=== PATIENT | male | born 1970 | race African-American/Black ===

== ENCOUNTER 2016-12-01 03:56 | Emergency (ER) | payer OTHER ==
--- NOTE | ~2016-12-01 | CR72 ---
[facility] A Service of [facility] & [facility] RADIOLOGY TEXT RESULTS PATIENT: NAHEED CONNER LOCATION: [facility] : 72 UNIT #: [id number] AGE: [address]: HANSEL MORE APRN SEX: M ORDER DR: [id number] [facility] [address], [place] [address] [id number] MR#: [id number] Acc #: [id number] NAME: NAHEED CONNER : 1970 SEX: M STUDY DATE/TIME: 12/01/2016 4:44 UNIT: [facility] ROOM: STUDY DESCRIPTION: CR Chest Single View Portable Attending Physician: Hansel More Aprn Ordering Physician: Hansel More Aprn Primary Care Physician: Primary Care Physician No MEDICAL IMAGING REPORT This report is preliminary unless electronic signature is present EXAM Portable chest INDICATIONS Wheezing and shortness of air today. PROCEDURE Frontal view chest. COMPARISON None FINDINGS Heart size normal. Lungs are clear. No pleural fluid. No pneumothorax. IMPRESSION No active process. Dictated by... Nithin Hoffman M.D. THIS IS AN ELECTRONICALLY VERIFIED REPORT Nithin Hoffman M.D. at 12/01/2016 10:15 PM Anay TD: 12/01/2016 06:44 JOB #: [id number] MEDICAL IMAGING REPORT Page 1 of 1 COPY
[2016-12-01 04:29] LABS: INFLUENZA A NEG (NEG); INFLUENZA B NEG (NEG)
== END 2016-12-01 05:40 | disposition home or self-care (01) ==
LOC: CED 03:56
PROVIDERS: Nurse Practitioner Family
DX: J45.21 Mild intermittent asthma with (acute) exacerbation (principal); Z98.890 Other specified postprocedural states
CPT/HCPCS: 71010; 87804; 94644; 99284